=== PATIENT | female | born 1960 ===

== ENCOUNTER 2019-07-26 09:25 | Outpatient (CLI) | payer OTHER | END 2019-07-26 09:38 | disposition home or self-care (01) | LOC: EKG 09:25 | DX: I10 Essential (primary) hypertension (principal) ==

== ENCOUNTER 2019-08-16 05:30 | Day surgery (SDC) | payer OTHER ==
[~2019-08-16 05:30] MED LIST: COLLAGEN PLUS1 EACH; COMPLEX B-1001 EACH; LOVAZA1 GM; MEGARED OMEGA-1 EAC2; SYNTHROID125 MCG; VITAMIN D35000 UNI1
== END 2019-08-16 11:00 | disposition home or self-care (01) ==
LOC: CIR.AMB 05:30
DX: M75.122 Complete rotator cuff tear or rupture of left shoulder, not specified as traumatic (principal); M75.22 Bicipital tendinitis, left shoulder; M75.02 Adhesive capsulitis of left shoulder